=== PATIENT | female | born 1965 | race American Indian/Alaskan Native ===

== ENCOUNTER 2017-01-22 20:37 | Emergency (ER) | payer OTHER ==
[~2017-01-22] VITALS: Ht 162.6 cm; Wt 127.0 kg
[~2017-01-22 20:37] MED LIST: CITALOPRAM HBR20 MG PO; FORADIL1 INHALATI INH; IPRATROPIU0.2 MG/1 M INH; PREDNISONE20 MG PO; PROAIR HFA8.5 GM INH; VALIUM5 MG PO
[2017-01-22] MEDS ORDERED: NORCO 5-325 TA1 EACH PO (21:25)
== END 2017-01-22 21:39 | disposition home or self-care (01) ==
LOC: ED 20:37
DX: S20.229A Contusion of unspecified back wall of thorax, initial encounter (principal); S70.10XA Contusion of unspecified thigh, initial encounter; J44.9 Chronic obstructive pulmonary disease, unspecified; Z90.710 Acquired absence of both cervix and uterus; Z90.49 Acquired absence of other specified parts of digestive tract; Z88.5 Allergy status to narcotic agent; Z88.8 Allergy status to other drugs, medicaments and biological substances; Z79.899 Other long term (current) drug therapy; W22.8XXA Striking against or struck by other objects, initial encounter
CPT/HCPCS: 72070; 99283

== ENCOUNTER 2017-06-10 19:01 | Emergency (ER) | payer OTHER ==
[~2017-06-10] VITALS: Ht 162.6 cm; Wt 127.0 kg
[~2017-06-10 19:01] MED LIST changes: +NORCO 5-325 TA1 EACH PO
[2017-06-10] MEDS ORDERED: PREDNISONE20 MG PO (19:13)
[2017-06-10] MEDS ORDERED: DULERA 200 MCG/13 GM INH (19:14)
[2017-06-10] MEDS ORDERED: ZITHROMAX250 MG PO (19:14)
== END 2017-06-10 20:14 | disposition home or self-care (01) ==
LOC: ED 19:01
DX: J44.0 Chronic obstructive pulmonary disease with (acute) lower respiratory infection (principal); J18.9 Pneumonia, unspecified organism; Z90.49 Acquired absence of other specified parts of digestive tract; Z90.710 Acquired absence of both cervix and uterus; Z88.5 Allergy status to narcotic agent; Z88.8 Allergy status to other drugs, medicaments and biological substances; Z79.899 Other long term (current) drug therapy; Z79.52 Long term (current) use of systemic steroids
CPT/HCPCS: 71020; 99283

== ENCOUNTER 2020-09-04 14:52 | Emergency (ER) | payer MEDICAID, OTHER ==
[~2020-09-04] VITALS: Ht 162.6 cm; Wt 127.0 kg
[~2020-09-04 14:52] MED LIST changes: +DULERA 200 MCG/13 GM INH; +ZITHROMAX250 MG PO
[2020-09-04] MEDS ORDERED: PREDNISONE20 MG PO (19:31)
--- NOTE | 2020-09-05 16:04 | EKG ---
[facility] [address] [facility] [place], [place] [address] Signed Normal sinus rhythm Pulmonary disease pattern Left anterior fascicular block Abnormal ECG No previous ECGs available Confirmed by OSEAS MAE DO ([id number]) on 09/05/2020 4:04:26 PM Electronically Signed By: OSEAS MAE DO 09/05/20 1604 PATIENT NAME: CHRIS SCHNEIDER Electrocardiogram DATE OF : 65 PHYSICIAN: OSEAS MAE DO REPORT #: [id number] REPORT IS CONFIDENTIAL AND NOT TO BE RELEASED WITHOUT AUTHORIZATION
--- NOTE | 2020-09-05 16:06 | EKG ---
[facility] [address] [facility] [place], [place] [address] Signed Normal sinus rhythm Pulmonary disease pattern Left anterior fascicular block Abnormal ECG When compared with ECG of 04-SEP-2020 15:36, (Unconfirmed) No significant change was found Confirmed by OSEAS MAE DO ([id number]) on 09/05/2020 4:06:22 PM Electronically Signed By: OSEAS MAE DO 09/05/20 1606 PATIENT NAME: CHRIS SCHNEIDER Electrocardiogram DATE OF : 65 PHYSICIAN: OSEAS MAE DO REPORT #: [id number] REPORT IS CONFIDENTIAL AND NOT TO BE RELEASED WITHOUT AUTHORIZATION
== END 2020-09-04 19:45 | disposition home or self-care (01) ==
LOC: ED 14:52
DX: J44.1 Chronic obstructive pulmonary disease with (acute) exacerbation (principal); Z20.822 Contact with and (suspected) exposure to COVID-19; I10 Essential (primary) hypertension; Z88.5 Allergy status to narcotic agent; Z88.8 Allergy status to other drugs, medicaments and biological substances; Z79.899 Other long term (current) drug therapy
CPT/HCPCS: 71045; 80053; 83735; 84484; 85025; 93005; 93010; 94640; 96374; 96375; 99285-25; C9803; J1170; J2405; J2930; U0003

== ENCOUNTER 2021-12-12 19:03 | Emergency (ER) | payer OTHER ==
[~2021-12-12] VITALS: Ht 162.6 cm; Wt 144.7 kg
[2021-12-12] MEDS ORDERED: SPIRIVA18 MCG INH (19:19)
--- NOTE | 2021-12-14 08:58 | EKG ---
[facility] [address] [facility] [place] [address] Signed Normal sinus rhythm Left axis deviation Pulmonary disease pattern Incomplete right bundle branch block Abnormal ECG No previous ECGs available Confirmed by EMANUEL FOSTER MD ([id number]) on 12/14/2021 8:58:04 AM Electronically Signed By: EMANUEL FOSTER MD 12/14/21 0858 PATIENT NAME: CHRIS SCHNEIDER Electrocardiogram DATE OF : 65 PHYSICIAN: EMANUEL FOSTER MD REPORT #: [id number] REPORT IS CONFIDENTIAL AND NOT TO BE RELEASED WITHOUT AUTHORIZATION
== END 2021-12-12 20:59 | disposition home or self-care (01) ==
LOC: ED 19:03
DX: R07.89 Other chest pain (principal); J44.9 Chronic obstructive pulmonary disease, unspecified; I10 Essential (primary) hypertension; Z88.5 Allergy status to narcotic agent; Z88.8 Allergy status to other drugs, medicaments and biological substances; Z79.51 Long term (current) use of inhaled steroids
CPT/HCPCS: 36415; 71045; 71046; 80053; 83735; 84484; 85025; 85379; 93005; 93010; 96374; 99285-25; A9270; J1885

== ENCOUNTER 2022-05-01 14:57 | Emergency (ER) | payer OTHER ==
[~2022-05-01] VITALS: Ht 162.6 cm; Wt 145.9 kg
[~2022-05-01 14:57] MED LIST changes: +SPIRIVA18 MCG INH
[2022-05-01] MEDS ORDERED: PREDNISONE20 MG PO (15:50)
== END 2022-05-01 16:00 | disposition home or self-care (01) ==
LOC: ED 14:57
DX: G56.02 Carpal tunnel syndrome, left upper limb (principal); J44.9 Chronic obstructive pulmonary disease, unspecified; Z88.5 Allergy status to narcotic agent; Z88.8 Allergy status to other drugs, medicaments and biological substances; Z79.899 Other long term (current) drug therapy
CPT/HCPCS: 99283; J7512

== ENCOUNTER 2023-12-07 14:45 | Emergency (ER) | payer OTHER ==
[~2023-12-07] VITALS: Ht 162.6 cm; Wt 132.4 kg
[~2023-12-07 14:45] MED LIST changes: +ATROVENT HFA12.9 GM INH; +LISINOPRIL-HCT1 EAC2 PO; +TOPROL XL25 MG PO; +VITAMIN D350 MC3 PO; +WELLBUTRIN SR100 MG PO
[2023-12-07] MEDS ORDERED: ASPIRIN 81 MG CHEW ONE (14:57)
[2023-12-07 14:58] LABS: BASOPHILS 0.8 % (0-2); EOSINOPHILS 1.5 % (0-6); HEMATOCRIT 43.4 % (35.0-50.0); HEMOGLOBIN 14.6 g/dL (12.0-18.0); LYMPHOCYTES 16.2 % (24-44); MCH 30.3 (27-36); MCHC 33.6 g/dl (30-36); MCV 90.2 fl (81-99); NEUTROPHILS 76.5 % (39-80); PLATELET COUNT 308 K/uL (140-440); RBC 4.81 M/ul (4.3-5.7)
[2023-12-07] MEDS ORDERED: NITROGLYCERIN 0.4 MG SUBL SL PRN (15:00)
[2023-12-07] MEDS ORDERED: ASPIRIN 81 MG CHEW PO ONE (15:00)
[2023-12-07] MEDS ORDERED: ALBUTEROL/IPRATROPIUM 3 ML NEB ONE (15:01)
[2023-12-07] MEDS ORDERED: ALBUTEROL/IPRATROPIUM 3 ML NEB INH ONE (15:15)
[2023-12-07 15:16] LABS: ALBUMIN 3.4 g/dL (3.4-5.0); ALBUMIN/GLOBULIN RATIO 0.81 (1.1-2.4); ANION GAP 13.4 (7-21); BILIRUBIN, TOTAL 0.4 ng/dL (0.2-1.0); BUN/CREATININE RATIO 20.28 (6.0-28.6); CALCIUM 8.5 mg/dL (8.5-10.1); CREATININE, SERUM 0.69 mg/dL (0.55-1.02); MAGNESIUM 2.2 mg/dL (1.8-2.4); POTASSIUM 4.4 mmol/L (3.5-5.1); PROTEIN, TOTAL 7.6 g/dL (6.4-8.2)
[2023-12-07] MEDS ORDERED: KETOROLAC TROMETHAMINE 15 MG/ML VIAL IV ONE (15:45)
[2023-12-07] MEDS ORDERED: HYDROCODON-ACE1 EA10 PO (18:04)
[2023-12-07 18:15] VITALS: BP 139/104
--- NOTE | 2023-12-07 21:38 | EKG ---
[facility] [address] [facility] [place] [address] Signed Normal sinus rhythm Left axis deviation Right bundle branch block Abnormal ECG When compared with ECG of 24-SEP-2023 12:09, No significant change was found Confirmed by Panda Alonso MD () on 12/07/2023 9:39:22 PM Electronically Signed By: PANDA ALONSO MD 12/07/23 2138 PATIENT NAME: CHRIS SCHNEIDER Electrocardiogram DATE OF : 65 PHYSICIAN: PANDA ALONSO MD REPORT #: [id number] REPORT IS CONFIDENTIAL AND NOT TO BE RELEASED WITHOUT AUTHORIZATION
== END 2023-12-07 18:16 | disposition home or self-care (01) ==
LOC: ED 14:45
PROVIDERS: Emergency Medicine
DX: R07.89 Other chest pain (principal); J44.9 Chronic obstructive pulmonary disease, unspecified; I10 Essential (primary) hypertension; Z88.5 Allergy status to narcotic agent; Z88.8 Allergy status to other drugs, medicaments and biological substances; Z79.899 Other long term (current) drug therapy
CPT/HCPCS: 36415; 71045; 80053; 83735; 84484; 85025; 85379; 93005; 93010; 94640; 96374; 99285-25; A9270; J1885

== ENCOUNTER 2024-05-01 21:09 | Emergency (ER) | payer OTHER ==
[~2024-05-01] VITALS: Ht 162.6 cm; Wt 135.5 kg
[~2024-05-01 21:09] MED LIST changes: +HYDROCODON-ACE1 EA10 PO
[2024-05-01] MEDS ORDERED: ondansetron HCL 4 MG/2 ML VIAL IV ONE (22:15)
[2024-05-01] MEDS ORDERED: MORPHINE SULFATE 4 MG/ML VIAL IV ONE ×2 (22:15→23:45)
[2024-05-01] MEDS ORDERED: SODIUM CHLORIDE 0.9% 1,000 ML IV ONE (22:15)
[2024-05-01 22:28] LABS: MCH 30.3 (27-36); RDW 13.5 (10.5-15.0)
[2024-05-01 22:30] LABS: BASOPHILS 1.1 % (0-2); EOSINOPHILS 1.2 % (0-6); HEMATOCRIT 41.6 % (35.0-50.0); HEMOGLOBIN 14.2 g/dL (12.0-18.0); LYMPHOCYTES 16.7 % (24-44); MCHC 34.2 g/dl (30-36); MCV 88.4 fl (81-99); MONOCYTES 5.6 % (0-12); NEUTROPHILS 75.4 % (39-80); PLATELET COUNT 285 K/uL (140-440); RBC 4.71 M/ul (4.3-5.7)
[2024-05-01 22:42] LABS: ALBUMIN 3.5 g/dL (3.4-5.0); ALBUMIN/GLOBULIN RATIO 0.92 (1.1-2.4); ANION GAP 12.2 (7-21); BILIRUBIN, TOTAL 0.4 ng/dL (0.2-1.0); BUN/CREATININE RATIO 25.51 (6.0-28.6); CALCIUM 9.4 mg/dL (8.5-10.1); CREATININE, SERUM 0.98 mg/dL (0.55-1.02); POTASSIUM 4.2 mmol/L (3.5-5.1); PROTEIN, TOTAL 7.3 g/dL (6.4-8.2)
[2024-05-01 22:46] LABS: BILIRUBIN, URINE POSITIVE (negative); BLOOD/HGB, URINE MODERATE (Negative); KETONE, URINE SMALL (Negative); LEUK ESTERASE, URINE MODERATE (negative); NITRITE, URINE NEGATIVE (negative)
[2024-05-01 22:53] LABS: EPITHELIAL CELLS, URINE SQUAMOUS 1+ /lpf (0-1+)
[2024-05-01 22:54] LABS: BACTERIA, URINE 2+ /hpf (negative); CASTS, URINE NONE SEEN \\lpf; COLLECTION TYPE, URINE CLEAN CATCH; CRYSTALS, URINE NONE SEEN (0-1+); REFLEX CULTURE, URINE Yes (No); WHITE BLOOD CELLS, URINE >50 /HPF (0-5)
[2024-05-01] MEDS ORDERED: ALBUTEROL/IPRATROPIUM 3 ML NEB INH ONE (23:45)
[2024-05-01] MEDS ORDERED: AMOXICILLIN/CLAVULANATE K 875 MG HOME.PACK PO ONE (23:45)
[2024-05-01] MEDS ORDERED: HYDROCODONE BIT/ACETAMINOPHEN 5/325 MG 1 TAB HOME.PACK PO ONE (23:45)
[2024-05-01] MEDS ORDERED: ALBUTEROL SULFATE 8 GM HOME.PACK INH ONE (23:45)
[2024-05-01] MEDS ORDERED: INHALER, ASSIST DEVICES 1 EACH SPACER MISC ONE (23:45)
[2024-05-01] MEDS ORDERED: ONDANSETRON 4 MG HOME.PACK SL ONE (23:45)
[2024-05-01] MEDS ORDERED: HYDROCODON-ACE1 EA10 PO (23:58)
[2024-05-01] MEDS ORDERED: ONDANSETRON ODT8 MG PO (23:58)
[2024-05-01] MEDS ORDERED: AMOX TR-K CLV1 EAC1 PO (23:58)
[2024-05-02] MEDS ORDERED: methylPREDNISolone 4 MG HOME.PACK PO ONE ×2 (00:05→23:45)
[2024-05-02 00:22] VITALS: BP 134/69
== END 2024-05-02 00:22 | disposition home or self-care (01) ==
LOC: ED 21:09
PROVIDERS: Family Medicine
DX: N39.0 Urinary tract infection, site not specified (principal); T83.719A Erosion of other prosthetic materials to surrounding organ or tissue, initial encounter; J40 Bronchitis, not specified as acute or chronic; J44.9 Chronic obstructive pulmonary disease, unspecified; I10 Essential (primary) hypertension; Y76.8 Miscellaneous obstetric and gynecological devices associated with adverse incidents, not elsewhere classified; Z88.5 Allergy status to narcotic agent; Z79.899 Other long term (current) drug therapy; Z11.52 Encounter for screening for COVID-19
CPT/HCPCS: 36415; 51701; 71045; 74177; 80053; 81001; 85025; 87077; 87088; 87186; 94640; 99284-25; A9270; J2270; J2405; J7030; Q9967; U0002

== ENCOUNTER 2024-09-02 15:57 | Emergency (ER) | payer OTHER ==
[~2024-09-02] VITALS: Ht 162.6 cm; Wt 142.9 kg
[~2024-09-02 15:57] MED LIST changes: +AMOX TR-K CLV1 EAC1 PO; +ONDANSETRON ODT8 MG PO
[2024-09-02] MEDS ORDERED: KETOROLAC TROMETHAMINE 15 MG/ML VIAL IV ONE (17:30)
[2024-09-02] MEDS ORDERED: HYDROmorphone HCL 1 MG/ML SYR IV PRN (17:30)
[2024-09-02] MEDS ORDERED: HYDROCODONE BIT/ACETAMINOPHEN 5/325 MG 1 TAB HOME.PACK PO ONE (19:45)
[2024-09-02] MEDS ORDERED: HYDROCODON-ACE1 EA10 PO (19:50)
[2024-09-02 19:56] VITALS: BP 146/76
== END 2024-09-02 19:56 | disposition home or self-care (01) ==
LOC: ED 15:57
DX: S80.01XA Contusion of right knee, initial encounter (principal); J44.9 Chronic obstructive pulmonary disease, unspecified; I10 Essential (primary) hypertension; Z88.5 Allergy status to narcotic agent; Z88.8 Allergy status to other drugs, medicaments and biological substances; Z79.899 Other long term (current) drug therapy; W00.0XXA Fall on same level due to ice and snow, initial encounter
CPT/HCPCS: 73560; 96374; 96375; 96376; 99283-25; A9270; J1171; J1885

== ENCOUNTER 2025-03-23 10:16 | Emergency (ER) | payer OTHER ==
[~2025-03-23] VITALS: Ht 162.6 cm; Wt 150.8 kg
[2025-03-23] MEDS ORDERED: ALBUTEROL/IPRATROPIUM 3 ML NEB INH ONE (10:30)
[2025-03-23 10:50] LABS: BASOPHILS 0.5 % (0.1-1.2); EOSINOPHILS 1.7 % (0.7-5.8); LYMPHOCYTES 19.6 % (19.3-51.7); MCH 28.6 PG (25.6-32.2); MCHC 32.9 g/dL (32.2-35.5); MCV 86.9 fL (79.4-94.8); MONOCYTES 5.7 % (4.7-12.5); NEUTROPHILS 72.3 % (34.0-71.1); RBC 4.96 M/uL (3.93-5.22)
[2025-03-23 11:06] LABS: ALT (SGPT) 24.0 U/L (14-59); AST (SGOT) 17.0 U/L (15-37); GLOMERULAR FILTRATION RATE,EST 103.0 mL/min (>60); PROTEIN, TOTAL 7.6 g/dL (6.4-8.2); UREA NITROGEN 13.0 mg/dL (7-18)
[2025-03-23] MEDS ORDERED: BUTALB-ACETAMI1 EACH PO (11:57)
[2025-03-23] MEDS ORDERED: KETOROLAC TROMETHAMINE 30 MG/ML VIAL IV ONE (12:00)
[2025-03-23 12:59] VITALS: BP 134/73
--- NOTE | 2025-03-24 12:58 | EKG ---
[facility] [address] [facility] [place] [address] Signed Normal sinus rhythm Left axis deviation Right bundle branch block Abnormal ECG When compared with ECG of 05-OCT-2024 09:49, Vent. rate has increased BY 27 BPM QRS duration has increased Nonspecific T wave abnormality no longer evident in Anterolateral leads QT has lengthened Confirmed by Ginger Farley DO ([id number]) on 03/24/2025 12:58:42 PM Electronically Signed By: GINGER FARLEY DO 03/24/25 1258 PATIENT NAME: CHRIS SCHNEIDER Electrocardiogram DATE OF : 65 PHYSICIAN: GINGER FARLEY DO REPORT #: [id number] REPORT IS CONFIDENTIAL AND NOT TO BE RELEASED WITHOUT AUTHORIZATION
== END 2025-03-23 12:59 | disposition home or self-care (01) ==
LOC: ED 10:16
PROVIDERS: Emergency Medicine
DX: R20.0 Anesthesia of skin (principal); H93.19 Tinnitus, unspecified ear; J44.9 Chronic obstructive pulmonary disease, unspecified; I10 Essential (primary) hypertension; Z88.5 Allergy status to narcotic agent; Z88.8 Allergy status to other drugs, medicaments and biological substances; Z79.899 Other long term (current) drug therapy
CPT/HCPCS: 36415; 71045; 80053; 83735; 84484; 85025; 93005; 93010; 94640; 96374; 99284-25; J1885